=== PATIENT | female | born 1980 | race American Indian/Alaskan Native ===

== ENCOUNTER 2017-10-17 20:45 | Emergency (ER) | payer MEDICAID ==
[2017-10-17 20:48] VITALS: BMI 37.1
[2017-10-17 20:57] VITALS: O2SAT 100
--- NOTE | 2017-10-17 21:13 | ED PDOC ---
Arrival/HPI - General Chief Complaint: Fever Time Seen by Provider: 10/17/17 21:05 Historian: Patient - History of Present Illness Narrative History of Present Illness (Text): 10/17/17 21:09 Charley Wellington is a 36 year old female, whose past medical history includes iron-deficiency anemia and hypertension, who presents to the Emergency department complaining of generalized body aches since 06:00 today. Patient reports associated fever, sore throat, cough, and headache. Patient states she did not receive an influenza vaccination and denies any recent sick contact. Patient denies any chest pain, shortness of breath, nausea, vomiting, diarrhea, neck pain, dizziness, or any other complaints. Time/Duration: Other (06:00 this morning) Symptom Onset: Gradual Symptom Course: Unchanged Activities at Onset: Light Context: Home Past Medical History - Provider Review Nursing Documentation Reviewed: Yes - Infectious Disease Hx of Infectious Diseases: None - Cardiac Hx Cardiac Disorders: Yes Hx Hypertension: Yes - Pulmonary Hx Respiratory Disorders: No - Neurological Hx Neurological Disorder: No - HEENT Hx HEENT Disorder: No - Renal Hx Renal Disorder: No - Endocrine/Metabolic Hx Endocrine Disorders: No - Hematological/Oncological Hx Blood Disorders: Yes Hx Anemia: Yes - Integumentary Hx Dermatological Disorder: No - Musculoskeletal/Rheumatological Hx Musculoskeletal Disorders: No - Gastrointestinal Hx Gastrointestinal Disorders: No - Genitourinary/Gynecological Hx Genitourinary Disorders: No - Psychiatric Hx Psychophysiologic Disorder: No Hx Substance Use: No - Anesthesia Hx Anesthesia: No Family/Social History - Physician Review Nursing Documentation Reviewed: Yes Family/Social History: Unknown Family HX Smoking Status: Never Smoked Hx Alcohol Use: No Hx Substance Use: No Allergies/Home Meds Allergies/Adverse Reactions: Allergies No Known Allergies Allergy (Verified 10/17/17 20:48) Home Medications: Home Meds Medication Instructions Recorded Confirmed Atorvastatin [Lipitor] 10 mg PO BID 10/17/17 10/17/17 Review of Systems - Physician Review All systems were reviewed & negative as marked: Yes - Review of Systems Constitutional: Fevers, Other (+body aches) Eyes: Normal ENT: Sore Throat Respiratory: Cough. absent: SOB Cardiovascular: Normal. absent: Chest Pain Gastrointestinal: Normal. absent: Abdominal Pain, Diarrhea, Nausea, Vomiting Genitourinary Female: Normal. absent: Dysuria, Frequency, Hematuria, Urine Output Changes Musculoskeletal: Normal. absent: Back Pain, Neck Pain Skin: Normal. absent: Rash Neurological: Headache. absent: Dizziness Endocrine: Normal Hemo/Lymphatic: Normal Psychiatric: Normal Physical Exam Vital Signs Reviewed: Yes Vital Signs Temp Pulse Resp BP Pulse Ox 10/17/17 21:38 100.6 F H 10/17/17 20:55 100.6 F H 96 H 20 137/92 H 100 Temperature: Febrile Blood Pressure: Normal Pulse: Regular Respiratory Rate: Normal Appearance: Positive for: Well-Appearing, Non-Toxic, Comfortable Pain Distress: None Mental Status: Positive for: Alert and Oriented X 3 - Systems Exam Head: Present: Atraumatic, Normocephalic Pupils: Present: PERRL Extroacular Muscles: Present: EOMI Conjunctiva: Present: Normal Ears: Present: Normal, NORMAL TM, Normal Canal. No: Erythema, TM Bulging, Fluid , TM Perf Mouth: Present: Moist Mucous Membranes Pharnyx: Present: ERYTHEMA. No: EXUDATE, TONSILS ENLARGED, Peritonsilar Swelling, Uvular Deviation, Muffled/Hoarse Voice, Strider, Soft Palate/Uvular Edema Nose (External): Present: Atraumatic Nose (Internal): Present: Normal Inspection Neck: Present: Normal Range of Motion Respiratory/Chest: Present: Clear to Auscultation, Good Air Exchange. No: Respiratory Distress, Accessory Muscle Use Cardiovascular: Present: Regular Rate and Rhythm, Normal S1, S2. No: Murmurs Abdomen: No: Tenderness, Distention, Peritoneal Signs Back: Present: Normal Inspection Upper Extremity: Present: Normal Inspection. No: Cyanosis, Edema Lower Extremity: Present: Normal Inspection. No: Edema Neurological: Present: GCS=15, CN II-XII Intact, Speech Normal Skin: Present: Warm, Dry, Normal Color. No: Rashes Psychiatric: Present: Alert, Oriented x 3, Normal Insight, Normal Concentration Medical Decision Making ED Course and Treatment: 10/17/17 21:09 Impression: 36 year old female complaining of generalized body aches, fever, sore throat, cough, and headache since 06:00. Differential Diagnosis included but are not limited to: URI vs. pharyngitis vs. influenza vs. viral syndrome Plan: -- Chest X-ray -- Rapid influenza, rapid strep -- UA -- Reassess and disposition Progress Notes: 10/17/17 22:05 noted blood in ua, pt states on period. no flank pain, urinary complaints 10/17/17 22:21 Chest X-ray reviewed, shows no acute processes. 10/17/17 22:22 On re-evaluation, pt is well-appearing, abdomen is soft/non-tender. Pt feels well to go home. Will treat empirical for high suspicion for influenza. Pt stable for d/c. - Lab Interpretations Lab Results: Lab Results 10/17/17 21:33: Urine Color Yellow, Urine Appearance Sl cloudy, Urine pH 7.0, Ur Specific [place] 1.015, Urine Protein Negative, Urine Glucose (UA) Negative, Urine Ketones Negative, Urine Blood Large H, Urine Nitrate Negative, Urine Bilirubin Negative, Urine Urobilinogen 0.2, Ur Leukocyte Esterase Small H, Urine RBC 2 - 5, Urine WBC 2 - 5, Ur Epithelial Cells 3 - 4, Urine Bacteria Mod , Urine HCG, Qual Negative 10/17/17 21:33: Influenza Typ A,B (EIA) Negative for flu a/b, Grp A Beta Strep Ag Negative I have reviewed the lab results: Yes - RAD Interpretation Radiology Orders: 10/17/17 21:09 CXR [CHEST TWO VIEWS (PA/LAT)] [RAD] Stat Aerospace Engineer: ED Physician - Medication Orders Current Medication Orders: Discontinued Medications Acetaminophen (Tylenol 325mg Tab) 975 mg PO STAT STA Stop: 10/17/17 21:10 Last Admin: 10/17/17 21:38 Dose: 975 mg MAR Pain/Vitals Document 10/17/17 21:38 JOL (Rec: 10/17/17 21:38 JOL [id number]) Pain Reassessment Is This A Pain ReAssessment? No Sleep Is patient sleeping during reassessment? No Presence of Pain Presence of Pain No Vitals Temperature (97.6 F-99.6 F) 100.6 F Temperature Source Oral Oseltamivir Phosphate (Tamiflu Cap) 75 mg PO STAT STA PRN Reason: Protocol Stop: 10/17/17 22:22 Last Admin: 10/17/17 22:50 Dose: 75 mg - Scribe Statement The provider has reviewed the documentation as recorded by the Kadi Roland Provider Scribe Attestation: All medical record entries made by the Scribcarole were at my direction and personally dictated by me. I have reviewed the chart and agree that the record accurately reflects my personal performance of the history, physical exam, medical decision making, and the department course for this patient. I have also personally directed, reviewed, and agree with the discharge instructions and disposition. Disposition/Present on Arrival - Present on Arrival Any Indicators Present on Arrival: No History of DVT/PE: No History of Uncontrolled Diabetes: No Urinary Catheter: No History of Decub. Ulcer: No History Surgical Site Infection Following: None - Disposition Have Diagnosis and Disposition been Completed?: Yes Diagnosis: Influenza-like illness Disposition: HOME/ ROUTINE Disposition Time: 23:18 Condition: STABLE Discharge Instructions (ExitCare): Viral Syndrome (DC) Additional Instructions: return to er with worsening symptoms or concerns., please follow up with your doctor in 1-2 days Prescriptions: Oseltamivir Phosphate [Tamiflu] 75 mg PO BID #10 capsule Referrals: Placido Cruz MD [Primary Care Provider] - Follow up with primary Forms: [facility] (Austrian), WORK NOTE
[2017-10-17 21:39] LABS: URINE BILIRUBIN NEGATIVE (NEGATIVE); URINE BLOOD LARGE (NEGATIVE); URINE GLUCOSE (UA) NEGATIVE (NEGATIVE); URINE LEUKOCYTE ESTERASE SMALL Leu/uL (NEGATIVE); URINE PROTEIN NEGATIVE mg/dL (<30 mg/dL); URINE UROBILINOGEN 0.2 E.U./dL (<1 E.U./dL)
[2017-10-17 21:43] LABS: URINE APPEARANCE SL CLOUDY (CLEAR); URINE COLOR YELLOW (YELLOW)
[2017-10-17 21:45] LABS: HCG,QUALITATIVE URINE NEGATIVE (NEGATIVE)
[2017-10-17 21:50] LABS: INFLUENZA A B NEGATIVE FOR FLU A/B (NEGATIVE)
[2017-10-17 22:04] LABS: URINE BACTERIA MOD (NEG)
[2017-10-18 02:03] VITALS: BP 130/78; PULSE 85; RESP 18; TEMP 98.9
--- NOTE | 2017-10-18 08:12 | RAD ---
HISTORY: cough COMPARISON: No prior. TECHNIQUE: Chest PA and lateral FINDINGS: LUNGS: No active pulmonary disease. PLEURA: No significant pleural effusion identified. No pneumothorax apparent. CARDIOVASCULAR: Cardiac silhouette is likely at least technically magnified in part. An element of cardiomegaly is not completely excluded. OSSEOUS STRUCTURES: No significant abnormalities. VISUALIZED UPPER ABDOMEN: Normal. OTHER FINDINGS: None. IMPRESSION: No acute pulmonary disease identified bilaterally. Cardiac silhouette appears somewhat prominent which is likely least due in part to technical magnification. No pulmonary vascular derangement appreciable.
== END 2017-10-17 22:50 | disposition home or self-care (01) ==
LOC: MERGE 20:45 → ED 20:45
DX: J11.1 Influenza due to unidentified influenza virus with other respiratory manifestations (principal); I10 Essential (primary) hypertension; D50.9 Iron deficiency anemia, unspecified